=== PATIENT | female | born 1990 | race African-American/Black ===

== ENCOUNTER 2018-02-23 03:34 | Emergency (ER) | payer SELFPAY ==
[2018-02-23 03:46] VITALS: TEMP 98.2
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
[2018-02-23 04:50] VITALS: BP 125/65; PULSE 67; RESP 17; O2SAT 99
== END 2018-02-23 05:12 | disposition home or self-care (01) ==
LOC: H.ER 03:34
DX: F43.20 Adjustment disorder, unspecified (principal); Z00.8 Encounter for other general examination

== ENCOUNTER 2018-07-29 02:32 | Emergency (ER) | payer SELFPAY ==
[2018-07-29 02:47] VITALS: RESP 16; O2SAT 98
[2018-07-29] MEDS ORDERED: Tetracaine 0.5% Ophth 2 ML BOTTLE ONE (03:09)
[2018-07-29] MEDS ORDERED: Fluorescein 1 mg Ophthalmic Strip ONE (03:10)
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
[2018-07-29 07:01] VITALS: BP 133/69; PULSE 72; TEMP 97.9
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
== END 2018-07-29 06:20 | disposition home or self-care (01) ==
LOC: H.ER 02:32
DX: H11.31 Conjunctival hemorrhage, right eye (principal); R51 Headache; F10.10 Alcohol abuse, uncomplicated; Y90.6 Blood alcohol level of 120-199 mg/100 ml; Y04.2XXA Assault by strike against or bumped into by another person, initial encounter
CPT/HCPCS: 70450; 70486; 99283; G0480